=== PATIENT | male | born 1995 | race African-American/Black ===

== ENCOUNTER 2018-09-12 20:47 | Emergency (ER) | payer SELFPAY ==
--- NOTE | 2018-09-12 21:53 | ER ---
Nurse's Notes [facility] Name: Germain Mcfarlane Age: 22 yrs Sex: Male : 1995 Arrival Date: 09/12/2018 Time: 20:48 Bed 18 Private MD: Diagnosis: Diarrhea, unspecified Presentation: 09/12 21:07 Presenting complaint: Patient states: since yesterday afternoon. pt c/o diarrhea. pt ak1 denies N/V. Transition of care: patient was not received from another setting of care. Onset of symptoms is unknown. Risk Assessment: Do you want to hurt yourself or someone else? Patient reports no desire to harm self or others. Initial Sepsis Screen: Does the patient meet any 2 criteria? No. Patient's initial sepsis screen is negative. Does the patient have a suspected source of infection? No. Patient's initial sepsis screen is negative. Care prior to arrival: None. 21:07 Method Of Arrival: Ambulatory ak1 21:07 Acuity: GRANT 4 ak1 Triage Assessment: 21:09 General: Appears in no apparent distress. Behavior is calm, cooperative. ak1 Historical: - Allergies: 21:09 No Known Allergies; ak1 - Home Meds: 21:09 None [Active]; ak1 - PMHx: 21:09 None; ak1 - PSHx: 21:09 None; ak1 - Immunization history:: Adult Immunizations unknown. - Social history:: Smoking status: Patient/guardian denies using tobacco. - Ebola Screening: : No symptoms or risks identified at this time. Screenin:30 Abuse screen: Denies threats or abuse. Denies injuries from another. Nutritional rr5 screening: No deficits noted. Tuberculosis screening: No symptoms or risk factors identified. Fall Risk None identified. Total Joyner Fall Scale indicates No Risk (0-24 pts). Assessment: 21:30 General: Appears in no apparent distress. comfortable, Behavior is calm, cooperative, rr5 appropriate for age. 21:30 Pain: Denies pain. Neuro: Level of Consciousness is awake, alert, obeys commands, rr5 Oriented to person, place, time, situation, Appropriate for age. Cardiovascular: Capillary refill < 3 seconds Patient's skin is warm and dry. Respiratory: Airway is patent Respiratory effort is even, unlabored, Respiratory pattern is regular, symmetrical. GI: Abdomen is flat, Bowel sounds present X 4 quads. Abd is soft and non tender Reports diarrhea. : No signs and/or symptoms were reported regarding the genitourinary system. EENT: No signs and/or symptoms were reported regarding the EENT system. Derm: No signs and/or symptoms reported regarding the dermatologic system. Musculoskeletal: Circulation, motion, and sensation intact. Capillary refill < 3 seconds. 22:30 Reassessment: Patient appears in no apparent distress at this time. Patient is alert, rr5 oriented x 3, equal unlabored respirations, skin warm/dry/pink. discharge instruction given and explained without complaints made. Patient denies pain at this time. Vital Signs: 21:09 BP 141 / 72; Pulse 60; Resp 16; Temp 97.9(O); Pulse Ox 100% on R/A; Weight 86.18 kg ak1 (R); Height 6 ft. 2 in. (187.96 cm) (R); Pain 0/10; 21:30 BP 133 / 70; Pulse 61; Resp 17; Temp 97.7; Pulse Ox 99% ; Pain 0/10; rr5 22:30 BP 121 / 76; Pulse 64; Resp 17; Temp 97.8; Pulse Ox 100% on R/A; Pain 0/10; rr5 21:09 Body Mass Index 24.39 (86.18 kg, 187.96 cm) ak1 ED Course: 20:48 Patient arrived in ED. ds1 21:08 Triage completed. ak1 21:09 Arm band placed on Patient placed in waiting room, Patient notified of wait time. ak1 21:24 Danilo Elizabeth RN is Primary Nurse. rr5 21:30 Patient has correct armband on for positive identification. Placed in gown. Bed in low rr5 position. Call light in reach. 21:41 [facility] Avendano [facility]C [facility]. snw 21:41 Layton Gutierrez MD is Attending Physician. snw 22:30 No provider procedures requiring assistance completed. Patient did not have IV access rr5 during this emergency room visit. Administered Medications: 21:55 Drug: Zofran 4 mg Route: PO; rr5 22:30 Follow up: Response: No adverse reaction; Marked relief of symptoms rr5 Outcome: 21:53 Discharge ordered by MD. henley 22:30 Discharged to home ambulatory. rr5 22:30 Condition: stable 22:30 Discharge instructions given to patient, Instructed on discharge instructions, follow up and referral plans. medication usage, Demonstrated understanding of instructions, follow-up care, medications, Prescriptions given X 1. 22:34 Patient left the ED. rr5 Signatures: Freda Avendano, GLAZIER HELPER-C GLAZIER HELPER-Csnw Iman Youngblood ds1 Jennifer Collins RN RN ak1 Danilo Elizabeth RN RN rr5 Corrections: (The following items were deleted from the chart) 21:10 21:07 Acuity: GRANT 3 ak1 ak1
--- NOTE | 2018-09-12 21:53 | EDPHYS ---
Physician Documentation [facility] Name: Germain Mcfarlane Age: 22 yrs Sex: Male : 1995 Arrival Date: 09/12/2018 Time: 20:48 Bed 18 Private MD: ED Physician Layton Gutierrez HPI: 09/12 23:43 This 22 yrs old Black Male presents to ER via Ambulatory with complaints of Abdominal snw Pain, Nausea. 23:43 The patient presents with cramping and diarrhea. Onset: The symptoms/episode snw began/occurred suddenly, 2 day(s) ago, and became persistent. The symptoms do not radiate. Associated signs and symptoms: Pertinent negatives: anorexia, blood in stools, fever, vomiting. The symptoms are described as crampy. Severity of pain: At its worst the pain was mild in the emergency department the pain has improved. The patient has not experienced similar symptoms in the past. The patient has not recently seen a physician. Historical: - Allergies: 21:09 No Known Allergies; ak1 - Home Meds: 21:09 None [Active]; ak1 - PMHx: 21:09 None; ak1 - PSHx: 21:09 None; ak1 - Immunization history:: Adult Immunizations unknown. - Social history:: Smoking status: Patient/guardian denies using tobacco. - Ebola Screening: : No symptoms or risks identified at this time. ROS: 23:41 Constitutional: Negative for fever, chills, and weight loss, Eyes: Negative for injury, snw pain, redness, and discharge, ENT: Negative for injury, pain, and discharge, Neck: Negative for injury, pain, and swelling, Cardiovascular: Negative for chest pain, palpitations, and edema, Respiratory: Negative for shortness of breath, cough, wheezing, and pleuritic chest pain, Back: Negative for injury and pain, : Negative for injury, bleeding, discharge, and swelling, MS/Extremity: Negative for injury and deformity, Skin: Negative for injury, rash, and discoloration, Neuro: Negative for headache, weakness, numbness, tingling, and seizure. 23:41 Abdomen/GI: Positive for diarrhea, abdominal cramps. Exam: 23:41 Constitutional: This is a well developed, well nourished patient who is awake, alert, snw and in no acute distress. Head/Face: Normocephalic, atraumatic. Eyes: Pupils equal round and reactive to light, extra-ocular motions intact. Lids and lashes normal. Conjunctiva and sclera are non-icteric and not injected. Cornea within normal limits. Periorbital areas with no swelling, redness, or edema. ENT: Nares patent. No nasal discharge, no septal abnormalities noted. Tympanic membranes are normal and external auditory canals are clear. Oropharynx with no redness, swelling, or masses, exudates, or evidence of obstruction, uvula midline. Mucous membranes moist. Neck: Trachea midline, no thyromegaly or masses palpated, and no cervical lymphadenopathy. Supple, full range of motion without nuchal rigidity, or vertebral point tenderness. No Meningismus. Chest/axilla: Normal chest wall appearance and motion. Nontender with no deformity. No lesions are appreciated. Cardiovascular: Regular rate and rhythm with a normal S1 and S2. No gallops, murmurs, or rubs. Normal PMI, no JVD. No pulse deficits. Respiratory: Lungs have equal breath sounds bilaterally, clear to auscultation and percussion. No rales, rhonchi or wheezes noted. No increased work of breathing, no retractions or nasal flaring. Abdomen/GI: Soft, non-tender, with normal bowel sounds. No distension or tympany. No guarding or rebound. No evidence of tenderness throughout. Back: No spinal tenderness. No costovertebral tenderness. Full range of motion. Skin: Warm, dry with normal turgor. Normal color with no rashes, no lesions, and no evidence of cellulitis. MS/ Extremity: Pulses equal, no cyanosis. Neurovascular intact. Full, normal range of motion. Neuro: Awake and alert, GCS 15, oriented to person, place, time, and situation. Cranial nerves II-XII grossly intact. Motor strength 5/5 in all extremities. Sensory grossly intact. Cerebellar exam normal. Normal gait. Psych: Awake, alert, with orientation to person, place and time. Behavior, mood, and affect are within normal limits. Vital Signs: 21:09 BP 141 / 72; Pulse 60; Resp 16; Temp 97.9(O); Pulse Ox 100% on R/A; Weight 86.18 kg ak1 (R); Height 6 ft. 2 in. (187.96 cm) (R); Pain 0/10; 21:30 BP 133 / 70; Pulse 61; Resp 17; Temp 97.7; Pulse Ox 99% ; Pain 0/10; rr5 22:30 BP 121 / 76; Pulse 64; Resp 17; Temp 97.8; Pulse Ox 100% on R/A; Pain 0/10; rr5 21:09 Body Mass Index 24.39 (86.18 kg, 187.96 cm) ak1 MDM: 21:41 Patient medically screened. snw 23:42 Data reviewed: vital signs, nurses notes. Data interpreted: Pulse oximetry: on room air snw is 100 %. Interpretation: normal. Counseling: I had a detailed discussion with the patient and/or guardian regarding: the historical points, exam findings, and any diagnostic results supporting the discharge/admit diagnosis, lab results, the need for outpatient follow up, to return to the emergency department if symptoms worsen or persist or if there are any questions or concerns that arise at home. Special discussion: Based on the patient's Hx, exam, and Dx evaluation, there is no indication for emergent surgery or inpatient Tx. It is understood by the patient/guardian that if the Sx's persist or worsen they need to return immediately for re-evaluation. Based on the history and exam findings, there is no indication for further emergent testing or inpatient evaluation. I discussed with the patient/guardian the need to see the primary care provider for further evaluation of the symptoms. 09/12 21:41 Order name: Urine Culture [facility] 09/12 21:41 Order name: Urine Microscopic Only; Complete Time: 22:24 [facility] 09/12 21:41 Order name: Urine Dipstick-Ancillary (obtain specimen); Complete Time: 22:04 [facility] 09/12 22:04 Order name: Urine Dipstick--Ancillary (enter results); Complete Time: 22:24 ar5 Administered Medications: 21:55 Drug: Zofran 4 mg Route: PO; rr5 22:30 Follow up: Response: No adverse reaction; Marked relief of symptoms rr5 Disposition: 09/13 01:39 Co-signature as Attending Physician, Layton Gutierrez MD. Disposition: 09/12/18 21:53 Discharged to Home. Impression: Diarrhea, unspecified. - Condition is Stable. - Discharge Instructions: Food Choices to Help Relieve Diarrhea, Adult, Diarrhea, Adult, Hypertension, Rehydration, Adult, Form - Blood Pressure Record Sheet. - Prescriptions for Zofran 4 mg Oral Tablet - take 1 tablet by ORAL route every 12 hours As needed; 20 tablet. - Work release form, Medication Reconciliation Form, Thank You Letter, Antibiotic Education, Prescription Opioid Use form. - Follow up: Private Physician; When: 2 - 3 days; Reason: Recheck today's complaints, Continuance of care, Re-evaluation by your physician. Follow up: Emergency Department; When: As needed; Reason: Worsening of condition. Signatures: Dispatcher [employer] EDMS Freda Avendano, HANG-C NURSING PROGRAM MANAGER-Csnw Jennifer Collins RN RN ak1 Layton Gutierrez MD MD gs Danilo Elizabeth RN RN rr5 Corrections: (The following items were deleted from the chart) 09/12 21:43 21:41 Urine Test ordered. snw 6 22:34 21:53 09/12/2018 21:53 Discharged to Home. Impression: Diarrhea, unspecified. Condition rr5 is Stable. Forms are Medication Reconciliation Form, Thank You Letter, Antibiotic Education, Prescription Opioid Use. Follow up: Private Physician; When: 2 - 3 days; Reason: Recheck today's complaints, Continuance of care, Re-evaluation by your physician. Follow up: Emergency Department; When: As needed; Reason: Worsening of condition. snw
[2018-09-12 22:09] LABS: Urine Blood NEGATIVE (NEG); Urine Glucose NEGATIVE (NEG); Urine Protein NEGATIVE (NEG); Urine Specific Gravity >1.030 (1.005-1.030)
[2018-09-12] MEDS ORDERED: ONDANSETRON 4 MG (ODT) TAB ONE (22:11)
[2018-09-12 22:15] LABS: Urine Bacteria <20 /HPF (NONE SEEN); Urine Culture Reflex Order NOT NEEDED; Urine RBC NONE SEEN /HPF (NONE SEEN)
== END 2018-09-12 22:34 | disposition home or self-care (01) ==
LOC: ER 20:47
DX: R19.7 Diarrhea, unspecified (principal)
CPT/HCPCS: 81003; 81015; 87086; 87088; 99283